=== PATIENT | female | born 1965 | race Caucasian/White ===

== ENCOUNTER → 2016-07-29 | Outpatient (CLI) | payer OTHER ==
[~2016-07-29] MED LIST: IBU-8800 MG PO; LEVOXYL0.125 MG PO; NORCO 325 MG-51 TAB PO
== END ==
LOC: COL.CARD 14:13
DX: I49.3 Ventricular premature depolarization (principal); I49.1 Atrial premature depolarization; R00.2 Palpitations

== ENCOUNTER → 2018-02-17 | Outpatient (CLI) | payer OTHER | LOC: COL.VAS 10:48 | DX: I34.0 Nonrheumatic mitral (valve) insufficiency (principal) ==

== ENCOUNTER 2019-02-16 11:00 | Outpatient (RCR) | payer OTHER | END 2019-05-08 | disposition home or self-care (01) | LOC: MKS.ESL.PT | DX: M76.30 Iliotibial band syndrome, unspecified leg (principal) ==

== ENCOUNTER → 2021-09-28 | Outpatient (CLI) | payer OTHER | LOC: COL.RAD 08:57 | DX: R31.9 Hematuria, unspecified (principal) ==